=== PATIENT | female | born 1975 | race Caucasian/White ===

== ENCOUNTER 2023-06-20 14:05 | Outpatient (CLI) | payer MEDICARE, OTHER, SELFPAY | END 2023-06-20 14:06 | disposition home or self-care (01) | LOC: INJ CL 14:14 | PROVIDERS: Visit Provider Family Medicine | DX: M54.16 Radiculopathy, lumbar region (principal); M51.36 Other intervertebral disc degeneration, lumbar region | CPT/HCPCS: 62323; J0702; Q9966 ==

== ENCOUNTER 2023-10-31 10:18 | Outpatient (CLI) | payer MEDICARE, OTHER, SELFPAY | END 2023-10-31 10:19 | disposition home or self-care (01) | LOC: INJ CL 10:21 | PROVIDERS: PCP Family Medicine; Visit Provider Family Medicine | DX: M54.16 Radiculopathy, lumbar region (principal); M51.36 Other intervertebral disc degeneration, lumbar region | CPT/HCPCS: 62323; J0702; Q9966 ==

== ENCOUNTER 2024-06-11 09:53 | Outpatient (CLI) | payer MEDICARE, OTHER, SELFPAY | END 2024-06-11 09:54 | disposition home or self-care (01) | LOC: INJ CL 09:54 | PROVIDERS: PCP Family Medicine; Visit Provider Family Medicine | DX: M54.16 Radiculopathy, lumbar region (principal); M51.26 Other intervertebral disc displacement, lumbar region | CPT/HCPCS: 62323; J0702; Q9966 ==

== ENCOUNTER 2025-06-20 07:10 | Outpatient (CLI) | payer MEDICARE, OTHER, SELFPAY | END 2025-06-20 07:11 | disposition home or self-care (01) | LOC: INJ CL 07:12 | PROVIDERS: PCP Family Medicine; Visit Provider Family Medicine | DX: M54.16 Radiculopathy, lumbar region (principal); M51.369 Other intervertebral disc degeneration, lumbar region without mention of lumbar back pain or lower extremity pain | CPT/HCPCS: 62323; J0702; Q9966 ==